=== PATIENT | female | born 1955 | race Caucasian/White ===

== ENCOUNTER 2020-12-02 09:56 | Emergency (ER) | payer OTHER, BC ==
--- OUTSIDE RECORDS SUMMARY | 2020-12-02 09:58 | XMS REPORT | Continuity of Care Document ---
:1955 Author Organization [facility] t Address [address] [place] [address] [place] [id number] Care Team Providers Name Role Phone Unavailable Unavailable Unavailable Problems This patient has no known problems. Allergies, Adverse Reactions, Alerts This patient has no known allergies or adverse reactions. Medications This patient has no known medications. Procedures This patient has no known procedures. Results This patient has no known results.
[2020-12-02] MEDS ORDERED: CASIRIVIMAB/IMDEVIMAB 10 ML VIAL ONE (10:59)
[2020-12-02] MEDS ORDERED: NA CHLORIDE 0.9% 250 ML ONE (10:59)
--- NOTE | 2020-12-02 12:07 | ER ---
Nurse's Notes [facility] Name: Jazzy Holcomb Age: 64 yrs Sex: Female : 1955 Arrival Date: 12/02/2020 Time: 09:58 Bed 25 Private MD: Diagnosis: SARS-associated coronavirus as the cause of diseases classified elsewhere Presentation: 12/02 10:16 Chief complaint: Patient states: Reports she was diagnosed with COVID-19 on 02/28/2021. aj2 Reports she would like a Regeneron infusion.. Denies LANI, temperature or any other concerns at this time. Coronavirus screen: Client presents with at least one sign or symptom that may indicate coronavirus-19. Standard/surgical mask placed on the client. Provider contacted for isolation considerations. Ebola Screen: No symptoms or risks identified at this time. Initial Sepsis Screen: Does the patient meet any 2 criteria? No. Patient's initial sepsis screen is negative. Does the patient have a suspected source of infection? No. Patient's initial sepsis screen is negative. Risk Assessment: Do you want to hurt yourself or someone else? Patient reports no desire to harm self or others. Onset of symptoms. 10:16 Method Of Arrival: Ambulatory aj2 10:16 Acuity: JERRY 4 ss Triage Assessment: 10:26 General: Appears in no apparent distress. comfortable, well groomed, well developed. aj2 General: Behavior is calm, cooperative, appropriate for age. Pain: Denies pain. Historical: - Home Meds: 10:26 Nexium 20 mg Oral cpDR [Active]; aj2 - PMHx: 10:26 GERD; aj2 - Immunization history:: Client reports having NOT received the Covid vaccine. - Social history:: Smoking status: unknown. Screenin:28 Abuse screen: Denies threats or abuse. Denies injuries from another. Nutritional aj2 screening: No deficits noted. Tuberculosis screening: No symptoms or risk factors identified. Fall Risk None identified. Vital Signs: 10:16 BP 129 / 61; aj2 10:16 BP 129 / 61; Pulse 73; Resp 18; Temp 98.2; Pulse Ox 99% ; Weight 67.13 kg; Height 5 ft. aj2 4 in. (162.56 cm); 12:27 BP 135 / 67; Pulse 62; Resp 18; Temp 98.0; Pulse Ox 100% on R/A; aj2 10:16 Body Mass Index 25.40 (67.13 kg, 162.56 cm) aj2 ED Course: 09:58 Patient arrived in ED. ds1 10:08 Dave Mejia PA is PHCP. jr8 10:08 Barrera Santana MD is Attending Physician. jr8 10:10 Ashlyn Oliveira is Primary Nurse. aj2 10:25 Triage completed. aj2 10:26 Arm band placed on right wrist. aj2 10:28 No apparent distress. Resting quietly. aj2 10:28 Patient has correct armband on for positive identification. aj2 10:28 No provider procedures requiring assistance completed. aj2 12:27 Inserted saline lock: 20 gauge. aj2 12:34 IV discontinued. aj2 Administered Medications: 10:55 Drug: REGEN-COV Dose Pack 120 mg/mL-120 mg/mL (EUA) 600 mg Route: IV; Rate: calculated aj2 rate; Site: left antecubital; Outcome: 12:06 Discharge ordered by . jr8 12:23 Discharged to home ambulatory. aj2 12:23 Condition: stable 12:23 Discharge instructions given to patient, Instructed on discharge instructions, follow up and referral plans. Demonstrated understanding of instructions, follow-up care, medications. 12:35 Patient left the ED. aj2 Signatures: Mary Tracy ds1 Thea Prince, RN RN ss Dave Mejia PA PA jr8 Ashlyn Oliveira aj2 Corrections: (The following items were deleted from the chart) 10: 10:16 Acuity: JERRY 2 aj2 aj2 10:28 10:16 Acuity: JERRY 3 aj2 ss
--- NOTE | 2020-12-02 12:07 | EDPHYS ---
Physician Documentation [facility] Name: Jazzy Holcomb Age: 64 yrs Sex: Female : 1955 Arrival Date: 12/02/2020 Time: 09:58 Bed 25 Private MD: ED Physician Barrera Santana HPI: 12/02 10:53 This 64 yrs old Female presents to ER via Ambulatory with complaints of Covid jr8 +- Wants Infusion. 10:53 Associated signs and symptoms: Pertinent positives: cough, fever. The patient has not jr8 experienced similar symptoms in the past. The patient has been recently seen by a physician:. Patient recently diagnosed with Covid and received results today. Had discussed with her physician the Regeneron infusion. Physician stated that she does meet criteria and was sent to the emergency room for evaluation for the Regeneron infusion. Patient with mild symptoms at this time.. Historical: - Home Meds: 10:26 Nexium 20 mg Oral cpDR [Active]; aj2 - PMHx: 10:26 GERD; aj2 - Immunization history:: Client reports having NOT received the Covid vaccine. - Social history:: Smoking status: unknown. ROS: 10:53 Constitutional: Positive for body aches, chills, fever. jr8 10:53 Respiratory: Positive for cough, Negative for shortness of breath. 10:53 All other systems are negative. Exam: 10:53 Constitutional: This is a well developed, well nourished patient who is awake, alert, jr8 and in no acute distress. ENT: Nares patent. No nasal discharge, no septal abnormalities noted. Tympanic membranes are normal and external auditory canals are clear. Oropharynx with no redness, swelling, or masses, exudates, or evidence of obstruction, uvula midline. Mucous membranes moist. Cardiovascular: Regular rate and rhythm with a normal S1 and S2. No gallops, murmurs, or rubs. Normal PMI, no JVD. No pulse deficits. Respiratory: Lungs have equal breath sounds bilaterally, clear to auscultation and percussion. No rales, rhonchi or wheezes noted. No increased work of breathing, no retractions or nasal flaring. Abdomen/GI: Soft, non-tender, with normal bowel sounds. No distension or tympany. No guarding or rebound. No evidence of tenderness throughout. Skin: Warm, dry with normal turgor. Normal color with no rashes, no lesions, and no evidence of cellulitis. MS/ Extremity: Pulses equal, no cyanosis. Neurovascular intact. Full, normal range of motion. Neuro: Awake and alert, GCS 15, oriented to person, place, time, and situation. Cranial nerves II-XII grossly intact. Motor strength 5/5 in all extremities. Sensory grossly intact. Vital Signs: 10:16 BP 129 / 61; aj2 10:16 BP 129 / 61; Pulse 73; Resp 18; Temp 98.2; Pulse Ox 99% ; Weight 67.13 kg; Height 5 ft. aj2 4 in. (162.56 cm); 12:27 BP 135 / 67; Pulse 62; Resp 18; Temp 98.0; Pulse Ox 100% on R/A; aj2 10:16 Body Mass Index 25.40 (67.13 kg, 162.56 cm) aj2 MDM: 10:08 Patient medically screened. jr8 12:06 Data reviewed: vital signs, nurses notes, and as a result, I will discharge patient. jr8 Data interpreted: Pulse oximetry: on room air is 99 %. Interpretation: normal. Counseling: I had a detailed discussion with the patient and/or guardian regarding: the historical points, exam findings, and any diagnostic results supporting the discharge/admit diagnosis, the need for outpatient follow up, a family practitioner. Administered Medications: 10:55 Drug: REGEN-COV Dose Pack 120 mg/mL-120 mg/mL (EUA) 600 mg Route: IV; Rate: calculated aj2 rate; Site: left antecubital; Disposition: 15:41 Co-signature as Attending Physician, Barrera Santana MD I agree with the assessment and rn plan of care. Attestation: The patient's history, exam findings, diagnostics, and a summary of any interventions or procedures was reviewed in detail with Dave JORDAN. Disposition Summary: 12/02/20 12:06 Discharge Ordered Location: Home jr8 Problem: new jr8 Symptoms: have improved jr8 Condition: Stable jr8 Diagnosis - SARS-associated coronavirus as the cause of diseases classified elsewhere jr8 Followup: jr8 - With: Private Physician - When: 5 - 6 days - Reason: Recheck today's complaints, Continuance of care, Re-evaluation by your physician Discharge Instructions: - Discharge Summary Sheet jr8 - COVID-19 jr8 Forms: - Medication Reconciliation Form jr8 - Thank You Letter jr8 - Antibiotic Education jr8 - Prescription Opioid Use jr8 Signatures: Barrera Santana MD MD rn Roszak, Josh, PA PA jr8 Ashlyn Oliveira aj2
[2020-12-02 12:43] VITALS: BP 135/67; TEMP 98; O2SAT 100
== END 2020-12-02 12:35 | disposition home or self-care (01) ==
LOC: ER 09:56
DX: U07.1 COVID-19 (principal); K21.9 Gastro-esophageal reflux disease without esophagitis
CPT/HCPCS: 96374; 99283; J7050